=== PATIENT | male | born 1945 | race Hispanic/Latino ===

== ENCOUNTER 2020-09-29 20:41 | Emergency (ER) | payer OTHER, MEDICARE ==
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
--- OUTSIDE RECORDS SUMMARY | 2020-09-29 20:45 | XMS REPORT | Continuity of Care Document ---
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 COMPREHENSIVE METABOLIC [id number] 13:01:00 Test Item Value Reference Range Interpretation Comments SODIUM (test code = 141 mmol/L 136-145 N NA) POTASSIUM (test code mmol/L 3.5-5.1 SPECIME N MODERATELY = K) HEMOLYZED CHLORIDE (test code = 104.0 mmol/L 98-107 N CL) CARBON DIOXIDE (test 28.7 mmol/L 21-32 N code = CO2) GLUCOSE (test code = 92 mg/dL 70-110 N GLU) BLOOD UREA NITROGEN 23 mg/dL 7-18 H (test code = BUN) GLOMERULAR FILTRATION 131.7 >60 Unit o f measure: RATE (test code = mL/min/1.7 3 GFR) [id number] Range:Healthy A dults >90 mL/min/1.73 m2 For Chronic Kidney Disease: St age II Mild Dec rease in GFR 6 0-90 Stage III Moderate Decrea se in GFR 30-59 Stage IV Se alisha Decrease in GFR 15-29 Stage V Kidney Failur e <15 CREATININE (test code 0.60 mg/dL 0.55-1.30 N = CREAT) TOTAL PROTEIN (test 6.8 g/dL 6.4-8.2 N code = PROT) ALBUMIN (test code = 4.1 g/dL 3.4-5.0 N ALB) GLOBULIN (test code = 2.7 g/dL 2.2-4.2 N GLOB) ALBUMIN/GLOBULIN 1.5 0.7-2.0 N RATIO (test code = A/G) CALCIUM (test code = 9.0 mg/dL 8.2-10.1 N CA) BILIRUBIN TOTAL (test 0.33 mg/dL 0.2-1.00 N code = BILT) SGOT/AST (test code = 34.0 U/L 15-37 N AST) SGPT/ALT (test code = 34.0 U/L 12-78 N Please note new ALT) normal range. ALKALINE PHOSPHATASE 90 U/L 46-116 N TOTAL (test code = ALKP) PROTHROMBIN [id number] 12:31:00 Test Item Value Reference Range Interpretation Comments PROTHROMBIN TIME 11.4 secs 10.1-12.5 N PATIENT (test code = PTP) INTERNATIONAL NORMAL 1.01 <2.0 RECOMME NDED THERAPEUTIC RATIO (test code = RANGE FOR ORAL INR) ANTICOAGULANTTR EATMENT: CONDI TION INRProphylaxis of venous thrombos is in 2.0 - 3.0 high-risk medic al or surgical patientsTreatme nt of venous thrombos is 2.0 - 3.0Prevention o f embolism 2.0 - 3.0Prevention o f recurrent embol ism, or 3.0 - 4. 5 patients with mechanical pros thetic intravascular v dykes IS PATIENT ON ANTICOAGULANTS ? GAas Lab been notified if Patient is on Heparin Drip? NOTHROMBOPLASTIN TIME [id number] 12:31:00 Test Item Value Reference Range Interpretation Comments PTT ACTIVATED (test code = APTT) 27.7 secs 24.9-37.0 N IS PATIENT ON ANTICOAGULANTS ? NHas Lab been notified if Patient is on Heparin Drip? NOCOMPREHENSIVE METABOLIC [id number] 12:20:00 Test Item Value Reference Range Interpretation Comments SODIUM (test code = NA) mmol/L 136-145 POTASSIUM (test code = mmol/L 3.5-5.1 SPECI MEN MODERATELY K) HEMOLYZED CHLORIDE (test code = mmol/L 98-107 CL) CARBON DIOXIDE (test mmol/L 21-32 code = CO2) GLUCOSE (test code = mg/dL 70-110 GLU) BLOOD UREA NITROGEN mg/dL 7-18 (test code = BUN) GLOMERULAR FILTRATION >60 RATE (test code = GFR) CREATININE (test code = mg/dL 0.55-1.30 CREAT) TOTAL PROTEIN (test code g/dL 6.4-8.2 = PROT) ALBUMIN (test code = g/dL 3.4-5.0 ALB) GLOBULIN (test code = g/dL 2.2-4.2 GLOB) ALBUMIN/GLOBULIN RATIO 0.7-2.0 (test code = A/G) CALCIUM (test code = CA) mg/dL 8.2-10.1 BILIRUBIN TOTAL (test mg/dL 0.2-1.00 code = BILT) SGOT/AST (test code = U/L 15-37 AST) SGPT/ALT (test code = U/L 12-78 ALT) ALKALINE PHOSPHATASE U/L 46-116 TOTAL (test code = ALKP) CBC W/AUTO [id number] 12:04:00 Test Item Value Reference Range Interpretation Comments WHITE BLOOD CELL (test code = WBC) 6.2 K/mm3 5.7-10.5 N RED BLOOD CELL (test code = RBC) 4.61 M/mm3 4.2-5.4 N HEMOGLOBIN (test code = HGB) 13.7 g/dL 12-16 N HEMATOCRIT (test code = HCT) 40.8 % 37-47 N MEAN CELL VOLUME (test code = MCV) 89 fL 80-98 N MEAN CELL HGB (test code = MCH) 29.7 pg 27-34 N MEAN CELL HGB CONCENTRATION (test 33.6 g/dL 30.8-34.1 N code = MCHC) RED CELL DISTRIBUTION WIDTH (test 13.0 % 11-16 N code = RDW) PLT (test code = PLT) 192 K/mm3 130-400 N MEAN PLATELET VOLUME (test code = 12.1 fL 8.9-12.1 N MPV) NEUTROPHIL % (test code = NT%) 67.6 % 45-70 N LYMPHOCYTE % (test code = LY%) 21.6 % 20-40 N MONOCYTE % (test code = MO%) 8.0 % 3-10 N EOSINOPHIL % (test code = EO%) 2.1 % 1-5 N BASOPHIL % (test code = BA%) 0.5 % 0.0-1.1 N NEUTROPHIL # (test code = NT#) 4.16 K/mm3 2.00-7.50 N LYMPHOCYTE # (test code = LY#) 1.33 K/mm3 1.50-4.00 L MONOCYTE # (test code = MO#) 0.49 K/mm3 0.2-0.8 N EOSINOPHIL # (test code = EO#) 0.13 K/mm3 0.04-0.4 N BASOPHIL # (test code = BA#) 0.03 K/mm3 0.02-0.10 N MANUAL DIFF REQUIRED (test code = NO MANUAL DIFF MDIFF) NUCLEATED RED BLOOD CELL (test 0 % 0-0 N code = NRBC)
--- OUTSIDE RECORDS SUMMARY | 2020-09-29 20:46 | XMS REPORT | Summary of Care ---
:1945 [address] [facility] - [facility] Address [address] [place] [address] Care Team Providers Name Role Phone LiannaPonce garcia Primary Care Provider Reason for Visit Reason Comments Knee Pain right Results [facility] Encounter Details Date Type Department Care Team Description 09/25/2020 Office Visit [facility] Orthopaedic Mk Johnson ight knee pain, Surgery- Yakov Arreola MD unspecified chronicity [address], [address] (Primary Dx) [address] [place] [address] [place], [place] [phone] Allergies Active Allergy Reactions Severity Noted Date Comments Sulfa (Sulfonamide Antibiotics) Rash 6 documented as of this encounter (statuses as of 09/25/2020) Medications Medication Sig Dispensed Refills Start Date End Date Status traMADOL (ULTRAM) 50 mg TK 1 TABLET BY 1 09/11/2016 Active tablet MOUTH EVERY 6 HOURS TAKE WITH FOOD atorvastatin (LIPITOR) Take 20 mg by 0 Active 20 mg tablet mouth at bedtime. TAMSULOSIN HCL Take by mouth. 0 Active (TAMSULOSIN ORAL) OMEPRAZOLE ORAL Take by mouth. 0 Active LEVOTHYROXINE SODIUM Take by mouth. 0 Active (LEVOTHYROXINE ORAL) travoprost (TRAVATAN Z) 1 Drop at 0 Active 0.004 % ophthalmic bedtime. solution methylPREDNISolone Take 21 tablets 1 Each 0 09/16/2016 Active (MEDROL, EDMOND,) 4 mg by mouth tablets SEE-INSTRUCTIONS . follow package directions methylPREDNISolone Take 21 tablets 1 Each 0 03/24/2017 Active (MEDROL, EDMOND,) 4 mg by mouth tablets SEE-INSTRUCTIONS . follow package directions meclizine 25 mg tablet TK 1 T PO TID 0 12/12/2019 Active PRF DIZZINESS FOR UP TO 30 DAYS DICLOFENAC 75 mg EC TAKE 1 TABLET BY 60 tablet 0 02/26/2020 Active tabletIndications: Right MOUTH TWICE wrist pain, Joint DAILY WITH MEALS swelling diclofenac 75 mg EC Take 1 tablet by 60 tablet 1 09/08/2020 Active tablet mouth 2 (two) times daily with meals. documented as of this encounter (statuses as of 09/25/2020) Active Problems No known active problemsdocumented as of this encounter (statuses as of 09/25/2020) Social History Tobacco Use Types Packs/Day Years Used Date Unknown If Ever Smoked Smokeless Tobacco: Never Used Alcohol Use Drinks/Week oz/Week Comments Not Currently 0 Standard drinks or equivalent 0.0 Sex Assigned at Date Recorded Not on file COVID-19 Exposure Response Date Recorded In the last month, have you been in contact with No / Unsure 09/25/2020 8:43 AM ERP TECHNICAL LEAD someone who was confirmed or suspected to have Coronavirus / COVID-19? documented as of this encounter Last Filed Vital Signs Vital Sign Reading Time Taken Comments Blood Pressure 152/77 09/25/2020 8:47 AM ERP TECHNICAL LEAD Pulse 60 09/25/2020 8:47 AM ERP TECHNICAL LEAD Temperature - - Respiratory Rate - - Oxygen Saturation - - Inhaled Oxygen Concentration - - Weight 84.4 kg (186 lb) 09/25/2020 8:47 AM ERP TECHNICAL LEAD Height 182.9 cm (6') 09/25/2020 8:47 AM ERP TECHNICAL LEAD Body Mass Index 25.23 09/25/2020 8:47 AM ERP TECHNICAL LEAD documented in this encounter Progress Notes Mk Johnson MD - 09/25/2020 11:00 AM CST Cc: Chief Complaint Patient presents with Knee Pain right Results MRI - [facility] Keon Alva is a 75 year old male. MRI Results of the Right Knee Allergies Keon is allergic to sulfa (sulfonamide antibiotics). Medications Outpatient Medications Prior to Visit Medication Sig Dispense Refill diclofenac 75 mg EC tablet Take 1 tablet by mouth 2 (two) times daily with meals. 60 tablet 1 DICLOFENAC 75 mg EC tablet TAKE 1 TABLET BY MOUTH TWICE DAILY WITH MEALS 60 tablet 0 meclizine 25 mg tablet TK 1 T PO TID PRF DIZZINESS FOR UP TO 30 DAYS methylPREDNISolone (MEDROL, EDMOND,) 4 mg tablets Take 21 tablets by mouth SEE- INSTRUCTIONS. followpackage directions 1 Each 0 atorvastatin (LIPITOR) 20 mg tablet Take 20 mg by mouth at bedtime. LEVOTHYROXINE SODIUM (LEVOTHYROXINE ORAL) Take by mouth. methylPREDNISolone (MEDROL, EDMOND,) 4 mg tablets Take 21 tablets by mouth SEE- INSTRUCTIONS. followpackage directions 1 Each 0 OMEPRAZOLE ORAL Take by mouth. TAMSULOSIN HCL (TAMSULOSIN ORAL) Take by mouth. traMADOL (ULTRAM) 50 mg tablet TK 1 TABLET BY MOUTH EVERY 6 HOURS TAKE WITH FOOD 1 travoprost (TRAVATAN Z) 0.004 % ophthalmic solution 1 Drop at bedtime. No facility-administered medications prior to visit. Histories Past Medical History: Diagnosis Date Esophageal reflux Glaucoma Hyperlipidemia Hypertension Thyroid disease Past Surgical History: Procedure Laterality Date HERNIA REPAIR JOINT SURGERY Rt - shoulder OTHER Rt & LT surgery- total 6 surgery OTHER Reconstruction TRIGGER FINGER RELEASE 03/08/2018 bilateral ring finger - performed by Dr. Johnson Social History Socioeconomic History Marital status: Spouse name: Not on file Number of children: Not on file Years of education: Not on file Highest education level: Not on file Occupational History Not on file Social Needs Financial resource strain: Not on file Food insecurity Worry: Not on file Inability: Not on file Transportation needs Medical: Not on file Non-medical: Not on file Tobacco Use Smoking status: Unknown If Ever Smoked Smokeless tobacco: Never Used Substance and Sexual Activity Alcohol use: Not Currently Alcohol/week: 0.0 standard drinks Drug use: Never Sexual activity: Not Currently Partners: Female Lifestyle Physical activity Days per week: Not on file Minutes per session: Not on file Stress: Not on file Relationships Social connections Talks on phone: Not on file Gets together: Not on file Attends evangelical service: Not on file Active member of club or organization: Not on file Attends meetings of clubs or organizations: Not on file Relationship status: Not on file Intimate partner violence Fear of current or ex partner: Not on file Emotionally abused: Not on file Physically abused: Not on file Forced sexual activity: Not on file Other Topics Concern Not on file Social History Narrative Lives with Family History Problem Relation Age of Onset Diabetes Mother No Significant Medical Problems Father Review of Systems All other systems reviewed and are negative. Vital Signs There were no vitals taken for this visit. Physical Exam Musculoskeletal: Right knee: He exhibits decreased range of motion. Comments: General: Well-developed well-nourished oriented to person place and time HEENT normocephalic atraumatic atraumatic pupils equal round reactive to light extraocular muscles intact Cervical thoracic and lumbar spine without focal deficit normal kyphosis and lordosis Chest clear to auscultation and percussion Cardiovascular regular rate and rhythm without gallop rub or murmur soft without organomegaly Normal bowel sounds Neurologic: Focal myotome or dermatomal deficits Vascular: Intact symmetrical bilateral upper and lower extremities Skin without stasis varicosities or breakdown Extremities without cyanosis clubbing or edema Lymphatics no peripheral lymphedema Psych normal mood and affect. Neurovascular function is intact. To include brisk capillary refill warm pink skin active motor function and sensory function intact. MRI from [facility] FINDINGS: A medial meniscectomy has been performed. No evidence of retear. Degenerative signal within the lateral meniscus. No tear The ACL and PCL are intact. The medial and the lateral collateral ligaments appear normal. The visualized patellar and quadriceps tendons are unremarkable. Thinning of the medial patellar facet cartilage with small areas increased signal within the posterior patella. This is compatible with chondromalacia patella. . The patellar retinacula are intact. Edema within the anterior subcutaneous tissue of the lower knee. 14 millimeter area increased signal within fibular head. Small joint effusion IMPRESSION: Mild chondromalacia patella 14 millimeter area of edema within the fibular head may be posttraumatic Dictated By: Mk Herzog MD 09/23/20 1612 Signed By: Mk Herzog MD 09/23/20 1613 Assessment/Plan Right knee pain Will continue with diclofenac. May come in for an injection if needed. Follow up prn. TECHNICAL LEAD documented in this encounter Plan of Treatment Health Maintenance Due Date Last Done Comments HEPATITIS C (HCV) SCREEN 1945 DTaP,Tdap,and Td Vaccines (1 - Tdap) 1964 COLON CANCER SCREENING ANNUAL FIT/FOBT 1995 COLON CANCER SCREENING FIT DNA EVERY 3 1995 YEARS COLON CANCER SCREENING SIGMOIDOSCOPY EVERY 1995 5 YEARS COLONOSCOPY 1995 Colorectal Cancer Screening 1995 Zoster Recombinant Vaccine (SHINGRIX) (1 1995 of 2) Medicare Wellness Visit 2010 PNEUMOCOCCAL VACCINES 65+ (1 of 1 - 2010 PPSV23) INFLUENZA VACCINE (#1) 2020 10/17/2019, 07/28/2019 Depression Screening 09/25/2021 09/25/2020 documented as of this encounter Results Not on filedocumented in this encounter Visit Diagnoses Diagnosis Right knee pain, unspecified chronicity - Primary documented in this encounter Insurance Payer Benefit Plan / Subscriber ID Effective Phone Address T ype Group Dates MEDICARE MEDICARE PART [id number] 2010-Pre [phone] [address] edicare A & B sent [phone] RAGH[place]ENDR[place] LILLY [phone] [facility] [id number] 2015-Pre [address] [facility] [place] sent [phone] Supplement MEDICARE [place] SUPPLEMENT RAGHAVENDRA MONTES [id number] documented as of this encounter
--- OUTSIDE RECORDS SUMMARY | 2020-09-29 20:46 | XMS REPORT | Summary of Care ---
:1945 Author Organization [facility] - [facility] Address [address] [place] [address] Care Team Providers Name Role Phone LiannaPonce garcia Primary Care Provider Reason for Visit Reason Comments Knee Pain right Results [facility] Encounter Details Date Type Department Care Team Description 09/25/2020 Office Visit [facility] Orthopaedic Mk Johnson ight knee pain, Surgery- Yakov Arreola MD unspecified chronicity [address], [address] (Primary Dx) [address] [place] [address] [address] [place], [place] [phone] Allergies Active Allergy Reactions Severity Noted [...] with No / Unsure 09/25/2020 8:43 AM GAS PLUMBER someone who was confirmed or suspected to have Coronavirus / COVID-19? documented as of this encounter Last Filed Vital Signs Vital Sign Reading Time Taken Comments Blood Pressure 152/77 09/25/2020 8:47 AM GAS PLUMBER Pulse 60 09/25/2020 8:47 AM GAS PLUMBER Temperature - - Respiratory Rate - - Oxygen Saturation - - Inhaled Oxygen Concentration - - Weight 84.4 kg (186 lb) 09/25/2020 8:47 AM GAS PLUMBER Height 182.9 cm (6') 09/25/2020 8:47 AM GAS PLUMBER Body Mass Index 25.23 09/25/2020 8:47 AM GAS PLUMBER documented in this encounter Progress Notes Mk Johnson MD - 09/25/2020 11:00 AM CST Cc: Chief Complaint Patient presents with Knee Pain right Results MRI - [facility] Keon Alva is a 75 year [...] file Gets together: Not on file Attends lutheran service: Not on file Active member of [...] function and sensory function intact. MRI from [facility] FINDINGS: A medial meniscectomy has been performed. [...] an injection if needed. Follow up prn. PLUMBER documented in this encounter Plan of Treatment [...] T ype Group Dates MEDICARE MEDICARE PART [id number] 2010-Pre [phone] [address] edicare A & B sent [phone] RAGHAVENDRA LILLY [id number] [facility] [id number] 2015-Pre [address] [facility] [place] sent [id number] Supplement MEDICARE [place] SUPPLEMENT RAGHAVENDRA MONTES [id number] documented as of this encounter
[2020-09-29] MEDS ORDERED: LIDOCAINE 1% MPF 5 ML VIAL ONE (23:29)
[2020-09-29] MEDS ORDERED: DOXYCYCLINE 100 MG CAP PO ONE (23:29)
[2020-09-29] MEDS ORDERED: TETANUS & DIPHTHERIA TOX,ADULT 0.5 ML VIAL ONE (23:30)
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
[2020-09-30 09:49] VITALS: TEMP 99.1
[2020-09-30 09:51] VITALS: BP 147/86; O2SAT 99
== END 2020-09-30 00:05 | disposition home or self-care (01) ==
LOC: ER 20:41
PROC: 0JC Subcutaneous Tissue and Fascia, Extirpation (ICD-10-PCS; principal; 2020-09-30)
DX: S01.04XA Puncture wound with foreign body of scalp, initial encounter (principal); Z23 Encounter for immunization; Z88.2 Allergy status to sulfonamides
CPT/HCPCS: 90471; 90714; 99284